=== PATIENT | male | born 1940 | race Caucasian/White ===

== ENCOUNTER → 2023-09-19 09:45 | Outpatient (REF) | payer OTHER, SELFPAY | LOC: DHSLP 09:45 | PROVIDERS: ATTENDING PHYSICIAN Internal Medicine; FAMILY PHYSICIAN Internal Medicine | DX: G47.33 Obstructive sleep apnea (adult) (pediatric) (principal) | CPT/HCPCS: 95810 ==

== ENCOUNTER → 2023-11-27 10:48 | Outpatient (REF) | payer OTHER, SELFPAY | LOC: HWRAD 10:48 | PROVIDERS: ATTENDING PHYSICIAN Nurse Practitioner Family | DX: R05.1 Acute cough (principal); R09.89 Other specified symptoms and signs involving the circulatory and respiratory systems | CPT/HCPCS: 71046 ==

== ENCOUNTER → 2023-12-02 12:43 | Outpatient (REF) | payer OTHER, SELFPAY | LOC: MRI 3T 12:43 | PROVIDERS: ATTENDING PHYSICIAN Orthopaedic Surgery; FAMILY PHYSICIAN Internal Medicine | DX: M25.561 Pain in right knee (principal) | CPT/HCPCS: 73721 ==

== ENCOUNTER 2024-03-13 06:07 | Inpatient (IN) | payer OTHER, SELFPAY ==
--- NOTE | 2024-02-12 08:15 | CM ---
Addendum entered by Yeimy Ramos 03/05/24 10:00:
Spoke with patient's . She states that patient has obtained a rolling walker.
Original Note:
Patient is scheduled for an elective R TKR on 03/13/24. Spoke with patient prior to surgery via telephone. Introduced role of Orthopedic Navigator. Patient reports that he lives with his in a one story cottage at [facility] independent living
(no steps to enter). He currently functions independently. He has a cane, shower seat, shower rails and his toilet is high. He has never had VN services. PCP is Dr. Mikey Gama.
Discussed orthopedic program and post surgical plans. Reviewed anticipated length of stay and that goal is for him to return home at discharge. Also reviewed outpatient PT. Patient is in agreement with tentative plan and will go directly to
outpatient PT at [facility]. He will have support from his when he goes home.
Patient will complete online education.
Plan: Orthopedic Navigator will remain available to assist with the care of patient and will reassess discharge needs after surgery.
[2024-02-19 08:13] VITALS: BMI 32.8
[2024-02-19 08:45] LABS: Hematocrit 38.1 % (39.0-52.0); Mean Corp Hgb Conc. 34.1 g/dL (33.0-37.0); Mean Corpuscular Hgb 30.1 pg (27.0-31.0); Mean Corpuscular Volume 88.2 fL (80.0-94.0); Mean Platelet Volume 9.1 fL (7.4-10.4); Platelet Count 200 10^3/uL (130-400); Red Blood Cell Count 4.32 10^6/uL (4.70-6.10); White Blood Cell Count 7.1 10^3/uL (4.8-10.8)
[2024-02-19 09:01] LABS: AST (SGOT) 20 U/L (17-59); Albumin 3.9 g/dl (3.5-5.0); Alkaline Phosphatase 104 U/L (38-126); Blood Urea Nitrogen 17 mg/dl (9-20); Calcium 9.5 mg/dl (8.4-10.2); Carbon Dioxide 26 mmol/L (22-30); Chloride 105 mmol/L (98-107); Estimated Creatinine Clearance 47 ml/min; Glucose 240 mg/dl (70-99); Potassium 4.6 mmol/L (3.5-5.1); Sodium 140 mmol/L (135-145); Total Bilirubin 0.6 mg/dl (0.2-1.3); Total Protein 6.2 g/dl (6.3-8.2); eGFR > 60.00
[2024-02-19 09:02] LABS: ALT (SGPT) 15 U/L (0-50)
[2024-02-19 09:43] LABS: Glycohemoglobin (HgbA1c) 7.1 % (4.0-5.6)
[2024-03-06 10:59] VITALS: BMI 32.8
[2024-03-13] VITALS (15 sets, daily range): BP systolic 122–141; BP diastolic 65–80; PULSE 85; O2SAT 93; BMI 32.8
[2024-03-13 06:28] LABS: Glucose - Point of Care 151 mg/dl (70-99)
[2024-03-13] MEDS: CELEBREX 200 MG PO (06:35)
[2024-03-13] MEDS: NORMOSOL-R 1000 IV ×2 (06:35→09:36)
[2024-03-13] MEDS: TYLENOL 650 MG PO ×4 (06:35→21:11)
--- NOTE | 2024-03-13 08:23 | CM ---
Reviewed chart. Patient admitted as planned for elective R TKR. Met with patient and his at bedside. Confirmed information previously obtained for assessment. Also discussed discharge plans. The plan is for patient to return home at discharge.
He will have support from his when he goes home. Patient will go directly to outpatient PT and will go to [facility] (he was given his script at his preop appointment in Dr. Barragan's office). He has an appointment scheduled for Sunday, 03/17.
Patient has a rolling walker, cane, high toilet seat and shower seat.
Discharge prescriptions were sent to patient's pharmacy ([facility] in [place]) prior top surgery.
[2024-03-13 09:08] LABS: Glucose - Point of Care 187 mg/dl (70-99)
[2024-03-13] MEDS: ROXICODONE 5 MG PO (09:39)
--- NOTE | 2024-03-13 10:59 | PTCARENOTE ---
Patient received from PACU in bed; IVF infusing; Right knee aquacell clean, dry, and intact; Patient has positive sensation to bilateral lower extremities; Bilateral pedal pulse +1; Patient on 2L NC; Patient states pain is mild and this is tolerable
for him; Patient denies N/V; Patient awake and alert to self, place and time; Call black within reach; Bed in lowest position, wheels locked; Assessment ongoing
[2024-03-13 11:12] LABS: Glucose - Point of Care 188 mg/dl (70-99)
[2024-03-13] MEDS: NOVOLOG FLEXPEN-MODERATE RESISTANCE 1 UNITS SC (11:27)
[2024-03-13] MEDS: LANTUS 0.08 UNITS SC (11:27)
[2024-03-13] MEDS: TORADOL 15 MG IV ×2 (11:28→20:08)
--- NOTE | 2024-03-13 12:44 | W.DS.TRANS ---
DC Summary - Deckhand
-
Discharge Instructions:
Discharge Diagnosis/Procedures R TKA Dr. Garcia 03/13/24
Diet Diabetic, Carb Controlled
Activity With Walker
Driving Restrictions No driving
Bathing Restrictions OK to Shower
Other Services PT
Instructions:
Stand-Alone Forms: Total Hip/Knee Replacement D/C
Changes to Home Medications: Yes
Discharge Medications:
DC Medications w/original date entered in [facility]
coQ10 (ubiquinol) 100 mg capsule 300 mg PO HS Supplement 05/10/23
levothyroxine 125 mcg tablet 125 mcg PO HS Thyroid 05/10/23
losartan 100 mg tablet 100 mg PO HS Blood Pressure 05/10/23
rosuvastatin 40 mg tablet 40 mg PO HS High Cholesterol 05/10/23
glimepiride 2 mg tablet 2 mg PO QPM 03/06/24
omega [id number] oil 1,200 mg (144 mg-216 mg) capsule (Fish Oil) 1 cap PO HS 03/06/24
sitagliptin phosphate 50 mg tablet (Januvia) 50 mg PO HS 03/06/24
Saccharomyces boulardii 250 mg capsule (Florastor) 250 mg PO BID #1 cap 03/13/24
apixaban 2.5 mg tablet (Eliquis) 2.5 mg PO BID #60 tabs 03/13/24
cefadroxil 500 mg capsule 500 mg PO BID infection prevention #14 caps 03/13/24
docusate sodium 100 mg capsule (Colace) 100 mg PO BID stool softner #1 cap 03/13/24
magnesium hydroxide 400 mg/5 mL oral suspension (Milk of Magnesia) 30 ml PO HS PRN Constipation #1 mL 03/13/24
mupirocin 2 % topical ointment 1 applic topical BID 03/13/24
ondansetron 4 mg disintegrating tablet 4 mg PO Q6H PRN n/v #20 tabs 03/13/24
oxycodone 5 mg tablet 5 mg PO Q6H PRN 1 tab moderate pain, 2 tabs severe pain #30 tabs 03/13/24
sennosides 8.6 mg tablet (Senokot) 17.2 mg (2 x 8.6 mg) PO BID laxative #2 tabs 03/13/24
Home Medication Changes
apixaban 2.5 mg tablet (Eliquis) 2.5 mg PO BID #60 tabs 03/13/24
cefadroxil 500 mg capsule 500 mg PO BID infection prevention #14 caps 03/13/24
mupirocin 2 % topical ointment 1 applic topical BID 03/13/24
ondansetron 4 mg disintegrating tablet 4 mg PO Q6H PRN n/v #20 tabs 03/13/24
oxycodone 5 mg tablet 5 mg PO Q6H PRN 1 tab moderate pain, 2 tabs severe pain #30 tabs 03/13/24
Pending Results: No
--- NOTE | 2024-03-13 15:40 | W.PN.UPDATE ---
Update Note
Progress Note Update
Patient doing well. VSS. Pulm: nonlabored. CV: reg. RLE: Dressing with bloody drainage inferiorly but contained. Able to fully extend. Calf soft. Sitting in chair bending knee to 90 degrees. Postop xray as expected. Eliquis for DVT
prophylaxis. Has been out in the hallway today with PT. Plan for discharge tomorrow with outpatient PT on Sunday.
[2024-03-13] MEDS: ANCEF 5 IV (15:46)
[2024-03-13] MEDS: NOVOLOG FLEXPEN-MODERATE RESISTANCE 3 UNITS SC (16:29)
[2024-03-13 16:30] LABS: Glucose - Point of Care 238 mg/dl (70-99)
[2024-03-13] MEDS: AMARYL 2 MG PO (17:01)
[2024-03-13 17:49] LABS: Glucose - Point of Care 207 mg/dl (70-99)
[2024-03-13] MEDS: COLACE PO (20:07)
[2024-03-13] MEDS: ELIQUIS 2.5 MG PO (20:08)
[2024-03-13] MEDS: SENOKOT PO (20:08)
[2024-03-13] MEDS: JANUVIA 50 MG PO (21:08)
[2024-03-13] MEDS: NEURONTIN 300 MG PO (21:08)
[2024-03-13] MEDS: CRESTOR 40 MG PO (21:09)
[2024-03-13] MEDS: PEPCID 20 MG PO (21:09)
[2024-03-13] MEDS: BACTROBAN 2% OINTMENT 1 APPLIC NASAL (21:11)
[2024-03-13 21:47] LABS: Glucose - Point of Care 216 mg/dl (70-99)
[2024-03-14] MEDS: ANCEF 5 IV (00:09)
[2024-03-14] MEDS: TYLENOL 650 MG PO ×3 (00:12→11:14)
[2024-03-14 02:56] VITALS: BP 124/65
[2024-03-14] MEDS: TYLENOL PO (03:18)
--- NOTE | 2024-03-14 07:20 | W.PN.ORTHO ---
Today's Communication / Plan
-
Plan for discharge home today with outpatient PT on Sunday
Assessment
.
Distal Motor Intact: Yes
Dressing:
Clean, dry and intact.
Assessment:
Doing well postop
Plan
.
Surgery / Date:
DVT Prophylaxis: Other (Eliquis)
Activity:
Out of bed.
PT/OT
Discharge Plan: Home w/ Outpatient PT
Subjective
.
.:
Patient resting comfortably. OOB in a chair this AM. No complaints
Vital Signs and Labs
.
Vital Signs and Labs:
Lab Results
02/19/24 08:09
02/19/24 08:09
Temp Pulse Resp BP Pulse Ox
97.3 F 67 12 124/65 95
03/14/24 02:56 03/14/24 02:56 03/14/24 02:56 03/14/24 02:56 03/14/24 02:56
Non-invasive Hgb result: 11.7
Physical Exam
-
Pulm: nonlabored
CV: regular
RLE: Incision with blood ooze from inferior aspect. [place] placed. NVI distally. ROM 0-90 degrees. Calf soft
[2024-03-14 07:35] VITALS: BP 137/65
[2024-03-14 08:08] LABS: Glucose - Point of Care 197 mg/dl (70-99)
[2024-03-14] MEDS: CELEBREX 200 MG PO (08:33)
[2024-03-14] MEDS: SENOKOT 17.2 MG PO (08:33)
[2024-03-14] MEDS: ELIQUIS 2.5 MG PO (08:33)
[2024-03-14] MEDS: TORADOL 15 MG IV (08:33)
[2024-03-14] MEDS: COLACE 100 MG PO (08:33)
[2024-03-14] MEDS: NOVOLOG FLEXPEN-MODERATE RESISTANCE 1 UNITS SC (08:34)
[2024-03-14] MEDS: LANTUS 0.08 UNITS SC (08:34)
--- NOTE | 2024-03-14 08:54 | CM ---
Addendum entered by VERNELL Cloud 03/14/24 12:08:
Met and patient after therapy. Patient doing well and will drive him home.
Original Note:
Reviewed chart and held rounds with OT and PT. Also spoke to RN. Patient admitted as planned for elective R TKR. Met with patient at bedside. Confirmed information previously obtained for assessment. Also discussed discharge plans. The plan is for
patient to return home at discharge. He will have support from his when he goes home. Patient will go directly to outpatient PT and will go to [facility] (he was given his script at his preop appointment in Dr. Barragan's office). He has an
appointment scheduled for Sunday, 03/17.
Patient has a rolling walker, cane, high toilet seat and shower seat.
Discharge prescriptions were sent to patient's pharmacy ([facility] in [place]) prior to surgery.
[2024-03-14] MEDS: BACTROBAN 2% OINTMENT 1 APPLIC NASAL (08:59)
[2024-03-14 09:47] VITALS: BP 131/75; PULSE 70; O2SAT 94
[2024-03-14 10:20] VITALS: BP 143/63; PULSE 77; O2SAT 95
[2024-03-14 11:10] VITALS: BP 125/53
--- NOTE | 2024-03-14 11:30 | W.PN.ORTHO ---
Today's Communication / Plan
-
d/c
Assessment
.
Distal Motor Intact: Yes
Dressing:
Clean, dry and intact.
Assessment:
Hx PE
Plan
.
Surgery / Date: Trang Garcia 03/14/24
DVT Prophylaxis: Other (Eliquis 2.5mg bid)
Activity:
Out of bed.
PT/OT
Discharge Plan: Home w/ Outpatient PT
Subjective
.
.:
Patient resting comfortably.
Vital Signs and Labs
.
Vital Signs and Labs:
Lab Results
02/19/24 08:09
02/19/24 08:09
Temp Pulse Resp BP Pulse Ox
97.7 F 72 18 125/53 95
03/14/24 11:10 03/14/24 11:10 03/14/24 11:10 03/14/24 11:10 03/14/24 11:10
Non-invasive Hgb result: 11.7
Physical Exam
-
HEENT: No pallor, cyanosis, or jaundice. Throat clear.
NECK: Supple. No JVD.
RESPIRATORY: Lungs clear to auscultation.
CVS: S1, S2 normal. RRR.� No murmur, rub or gallop.
ABDOMEN: Soft, non-tender. No distension. BS+/normal.
EXTREMITIES: strength equal, no calf pain with palpation
COST ESTIMATING CLERK: AOx3. No focal deficits. door captain grossly intact
== END 2024-03-14 12:15 | disposition home or self-care (01) | DRG 470 ==
LOC: 2 SOUTH 06:07
PROVIDERS: ADMITTING PHYSICIAN Orthopaedic Surgery; FAMILY PHYSICIAN Internal Medicine
PROC: 0SRC0J9 Replacement of Right Knee Joint with Synthetic Substitute, Cemented, Open Approach (ICD-10-PCS; 2024-03-13)
DX: M17.11 Unilateral primary osteoarthritis, right knee (principal); I65.21 Occlusion and stenosis of right carotid artery; E11.9 Type 2 diabetes mellitus without complications; G47.33 Obstructive sleep apnea (adult) (pediatric); E78.2 Mixed hyperlipidemia; I49.1 Atrial premature depolarization; I11.9 Hypertensive heart disease without heart failure; E03.9 Hypothyroidism, unspecified; I25.10 Atherosclerotic heart disease of native coronary artery without angina pectoris; Z79.01 Long term (current) use of anticoagulants; F17.210 Nicotine dependence, cigarettes, uncomplicated; F17.290 Nicotine dependence, other tobacco product, uncomplicated; Z79.890 Hormone replacement therapy; Z79.84 Long term (current) use of oral hypoglycemic drugs; Z86.718 Personal history of other venous thrombosis and embolism; Z86.711 Personal history of pulmonary embolism
CPT/HCPCS: 36415; 73560; 80053; 82962; 83036; 85027; 87070; 97110; 97116; 97162; 97166; 97535; C1713; C1776